=== PATIENT | female | born 1950 | race Caucasian/White ===

== ENCOUNTER → 2019-11-01 09:53 | Outpatient (BNVA) | payer MEDICARE, OTHER, SELFPAY | PROVIDERS: Family Provider Nurse Practitioner; Visit Provider Nurse Practitioner | DX: M81.0 Age-related osteoporosis without current pathological fracture (principal) | CPT/HCPCS: 82310 ==

== ENCOUNTER 2019-11-11 14:27 | Outpatient (CLI) | payer MEDICARE, OTHER, SELFPAY ==
--- NOTE | 2019-11-11 14:33 | MM_ITS ---
WS: [id number] BILATERAL DIGITAL SCREENING MAMMOGRAPHY WITH CAD CLINICAL INFORMATION: SCREENING HISTORY: Screening mammogram. Breast soreness COMPARISON: July 18, 2017 TECHNIQUE: Bilateral CC and MLO views. FINDINGS: Scattered fibroglandular densities bilaterally. Lucent centered calcifications. No suspicious focal m ass, asymmetry, calcifications, or architectural distortion. No evidence of malignancy. MM/[id number] IMPRESSION: BI-RADS: 2-Benign FOLLOW UP: 1 Year Follow-up Recommend return to annual screening mammography.
== END 2019-11-11 14:28 | disposition home or self-care (01) ==
LOC: RADSHAW 14:30
PROVIDERS: Family Provider Nurse Practitioner; PCP Nurse Practitioner; Visit Provider Nurse Practitioner
DX: Z12.31 Encounter for screening mammogram for malignant neoplasm of breast (principal)
CPT/HCPCS: 77067

== ENCOUNTER → 2019-11-15 15:55 | Outpatient (BNVA) | payer MEDICARE, OTHER, SELFPAY | PROVIDERS: Family Provider Nurse Practitioner; PCP Nurse Practitioner; Visit Provider Nurse Practitioner | DX: E11.65 Type 2 diabetes mellitus with hyperglycemia (principal); Z79.4 Long term (current) use of insulin; I10 Essential (primary) hypertension; F32.9 Major depressive disorder, single episode, unspecified; L21.9 Seborrheic dermatitis, unspecified; M81.0 Age-related osteoporosis without current pathological fracture | CPT/HCPCS: 80053; 81003; 83036 ==

== ENCOUNTER 2019-12-07 14:41 | Outpatient (CLI) | payer MEDICARE, OTHER, SELFPAY ==
[2019-12-07 14:45] VITALS: BP 105/55; PULSE 81; RESP 16; TEMP 36.7; O2SAT 96
[2019-12-07] MEDS: denosumab 60 mg SDV SUBCUT (15:08)
[2019-12-07 15:17] VITALS: BP 105/59; PULSE 78; TEMP 36.9
== END 2019-12-07 14:42 | disposition home or self-care (01) ==
LOC: RHEOACUTE 14:43
PROVIDERS: Family Provider Nurse Practitioner; PCP Nurse Practitioner; Visit Provider Internal Medicine Rheumatology
DX: M81.0 Age-related osteoporosis without current pathological fracture (principal)
CPT/HCPCS: 96372; J0897

== ENCOUNTER → 2020-02-29 09:41 | Outpatient (BNVA) | payer MEDICARE, OTHER, SELFPAY | PROVIDERS: Family Provider Nurse Practitioner; PCP Nurse Practitioner; Visit Provider Nurse Practitioner Family | DX: E11.65 Type 2 diabetes mellitus with hyperglycemia (principal); Z79.4 Long term (current) use of insulin; I10 Essential (primary) hypertension | CPT/HCPCS: 80053; 80061; 83036; 84443; 85025 ==

== ENCOUNTER → 2020-05-30 08:28 | Outpatient (BNVA) | payer MEDICARE, OTHER, SELFPAY | PROVIDERS: Family Provider Nurse Practitioner; PCP Nurse Practitioner; Visit Provider Nurse Practitioner | DX: I10 Essential (primary) hypertension (principal); E11.65 Type 2 diabetes mellitus with hyperglycemia; Z79.4 Long term (current) use of insulin | CPT/HCPCS: 80053; 80061; 83036 ==

== ENCOUNTER → 2020-06-14 10:05 | Outpatient (BNVA) | payer MEDICARE, OTHER, SELFPAY | PROVIDERS: Family Provider Nurse Practitioner; PCP Nurse Practitioner; Visit Provider Nurse Practitioner | DX: M25.552 Pain in left hip (principal) | CPT/HCPCS: 73502 ==

== ENCOUNTER → 2020-07-06 13:39 | Outpatient (BNVA) | payer MEDICARE, OTHER, SELFPAY | PROVIDERS: Family Provider Nurse Practitioner; PCP Nurse Practitioner; Visit Provider Nurse Practitioner | DX: E11.65 Type 2 diabetes mellitus with hyperglycemia (principal); Z79.4 Long term (current) use of insulin | CPT/HCPCS: 82310 ==

== ENCOUNTER 2020-07-18 12:43 | Outpatient (CLI) | payer MEDICARE, OTHER, SELFPAY ==
[2020-07-18 12:55] VITALS: BP 145/78; PULSE 78; RESP 16; TEMP 36.6; O2SAT 96
[2020-07-18] MEDS: denosumab 60 mg SDV SUBCUT (12:59)
[2020-07-18 13:00] VITALS: BMI 37.5
[2020-07-18 13:35] VITALS: BP 127/76; PULSE 78; RESP 16; TEMP 37; O2SAT 97
== END 2020-07-18 12:44 | disposition home or self-care (01) ==
LOC: RHEOACUTE 12:45
PROVIDERS: Family Provider Nurse Practitioner; PCP Nurse Practitioner; Visit Provider Internal Medicine Rheumatology
DX: M81.0 Age-related osteoporosis without current pathological fracture (principal)
CPT/HCPCS: 96372; J0897

== ENCOUNTER → 2020-10-04 09:32 | Outpatient (BNVA) | payer MEDICARE, OTHER, SELFPAY | PROVIDERS: Family Provider Nurse Practitioner; PCP Nurse Practitioner; Visit Provider Nurse Practitioner | DX: E11.65 Type 2 diabetes mellitus with hyperglycemia (principal); I10 Essential (primary) hypertension; Z79.4 Long term (current) use of insulin | CPT/HCPCS: 80053; 80061; 81000; 83036 ==

== ENCOUNTER 2020-10-11 06:00 | Outpatient (RCR) | payer MEDICARE, OTHER, SELFPAY | END 2020-10-22 23:59 | disposition home or self-care (01) | LOC: APT 06:00 | PROVIDERS: Family Provider Nurse Practitioner; PCP Nurse Practitioner; Referring Provider Nurse Practitioner; Visit Provider Nurse Practitioner | DX: M25.552 Pain in left hip (principal) | CPT/HCPCS: 97110; 97163 ==

== ENCOUNTER 2020-10-23 06:00 | Outpatient (RCR) | payer MEDICARE, OTHER, SELFPAY | END 2020-11-19 23:59 | disposition home or self-care (01) | LOC: APT 06:00 | PROVIDERS: Family Provider Nurse Practitioner; PCP Nurse Practitioner; Referring Provider Nurse Practitioner; Visit Provider Nurse Practitioner | DX: M25.552 Pain in left hip (principal) | CPT/HCPCS: 97110; 97112 ==

== ENCOUNTER 2020-11-20 06:00 | Outpatient (RCR) | payer MEDICARE, OTHER, SELFPAY | END 2020-12-20 23:59 | disposition home or self-care (01) | LOC: APT 06:00 | PROVIDERS: Family Provider Nurse Practitioner; PCP Nurse Practitioner; Referring Provider Nurse Practitioner; Visit Provider Nurse Practitioner | DX: M25.552 Pain in left hip (principal) | CPT/HCPCS: 97110; 97112; 97164 ==

== ENCOUNTER → 2021-01-24 08:34 | Outpatient (BNVA) | payer MEDICARE, OTHER, SELFPAY | PROVIDERS: Family Provider Nurse Practitioner; PCP Nurse Practitioner; Visit Provider Nurse Practitioner | DX: E11.65 Type 2 diabetes mellitus with hyperglycemia (principal); Z79.4 Long term (current) use of insulin; E55.9 Vitamin D deficiency, unspecified | CPT/HCPCS: 80053; 81000; 82306; 83036 ==

== ENCOUNTER 2021-02-07 13:03 | Outpatient (CLI) | payer MEDICARE, OTHER, SELFPAY ==
[2021-02-07 13:14] VITALS: BP 125/61; PULSE 90; RESP 18; TEMP 36.7; O2SAT 95
[2021-02-07] MEDS: denosumab 60 mg SDV SUBCUT (13:27)
== END 2021-02-07 13:04 | disposition home or self-care (01) ==
PROVIDERS: PCP Nurse Practitioner; Visit Provider Nurse Practitioner
DX: M81.0 Age-related osteoporosis without current pathological fracture (principal)
CPT/HCPCS: 96372; J0897

== ENCOUNTER 2021-02-22 10:05 | Outpatient (CLI) | payer MEDICARE, OTHER, SELFPAY ==
--- NOTE | 2021-02-22 10:09 | MM_ITS ---
WS: [id number] BILATERAL SCREENING DIGITAL MAMMOGRAM WITH CAD HISTORY: SCREENING COMPARISON: 11/11/2019 and 07/18/2017 Bilateral CC and MLO views submitted. Computer aided detection analyzed. Breast composition: There are scattered areas of fibroglandular density. No suspicious masses, microc alcifications or architectural distortion. Benign coarse round calcifications in each breast. MM/[place] [id number] IMPRESSION: BI-RADS: 2-Benign FOLLOW UP: 1 Year Follow-up
== END 2021-02-22 10:06 | disposition home or self-care (01) ==
LOC: RADSHAW 10:07
PROVIDERS: PCP Nurse Practitioner; Visit Provider Nurse Practitioner
DX: Z12.31 Encounter for screening mammogram for malignant neoplasm of breast (principal)
CPT/HCPCS: 77067

== ENCOUNTER → 2021-05-07 11:06 | Outpatient (BNVA) | payer MEDICARE, OTHER, SELFPAY | PROVIDERS: PCP Nurse Practitioner; Visit Provider Nurse Practitioner | DX: E11.65 Type 2 diabetes mellitus with hyperglycemia (principal); I10 Essential (primary) hypertension; F32.9 Major depressive disorder, single episode, unspecified; Z79.4 Long term (current) use of insulin | CPT/HCPCS: 80053; 80061; 83036; 84443 ==

== ENCOUNTER 2021-07-02 14:34 | Outpatient (CLI) | payer MEDICARE, OTHER, SELFPAY ==
--- NOTE | 2021-07-02 14:43 | US_ITS ---
WS: [id number] RENAL ULTRASOUND HISTORY: STAGE 3B CHRONIC KIDNEY DZ COMPARISON: None available. TECHNIQUE: 2-D and color Doppler imaging of the kidney submitted. Right kidney: 10.4 cm x 5.9 cm x 5.0 cm. Normal echogenicity with no hydronephrosis or mass. Left kidney: 9.9 cm x 5.0 cm x 5.3 cm. Normal echogenicity with no hydronephrosis or mass. Aorta: Normal. Urinary Bladder: Normal distention. US/US renal BI* [id number] IMPRESSION: Normal renal ultrasound.
== END 2021-07-02 14:35 | disposition home or self-care (01) ==
LOC: RAD 14:37
PROVIDERS: PCP Nurse Practitioner; Visit Provider Internal Medicine Nephrology
DX: N18.32 Chronic kidney disease, stage 3b (principal)
CPT/HCPCS: 76770

== ENCOUNTER → 2021-08-09 09:09 | Outpatient (BNVA) | payer MEDICARE, OTHER, SELFPAY | PROVIDERS: PCP Nurse Practitioner; Visit Provider Nurse Practitioner | DX: E11.65 Type 2 diabetes mellitus with hyperglycemia (principal); Z79.4 Long term (current) use of insulin; E55.9 Vitamin D deficiency, unspecified | CPT/HCPCS: 80053; 80061; 82043; 82306; 83036; 84443; 85025 ==

== ENCOUNTER → 2021-11-26 13:09 | Outpatient (BNVA) | payer MEDICARE, OTHER, SELFPAY | PROVIDERS: PCP Nurse Practitioner; Visit Provider Nurse Practitioner | DX: I10 Essential (primary) hypertension (principal); E11.65 Type 2 diabetes mellitus with hyperglycemia; Z79.4 Long term (current) use of insulin | CPT/HCPCS: 80048; 80061; 83036; 84443; 84450; 84460 ==

== ENCOUNTER 2021-11-28 13:04 | Outpatient (CLI) | payer MEDICARE, OTHER, SELFPAY ==
[2021-11-28 13:21] VITALS: BP 140/59; PULSE 83; RESP 18; TEMP 36.9; O2SAT 95
[2021-11-28] MEDS: denosumab 60 mg SDV SUBCUT (13:26)
[2021-11-28 13:32] VITALS: BP 124/59; PULSE 77; RESP 18; TEMP 36.8; O2SAT 97
== END 2021-11-28 13:05 | disposition home or self-care (01) ==
PROVIDERS: PCP Nurse Practitioner; Visit Provider Nurse Practitioner
DX: M81.0 Age-related osteoporosis without current pathological fracture (principal)
CPT/HCPCS: 96372; J0897

== ENCOUNTER → 2021-12-05 08:33 | Outpatient (BNVA) | payer MEDICARE, OTHER, SELFPAY | PROVIDERS: PCP Nurse Practitioner; Visit Provider Internal Medicine Nephrology | DX: N18.32 Chronic kidney disease, stage 3b (principal) | CPT/HCPCS: 80069; 82043; 82310; 83970; 85025 ==

== ENCOUNTER 2022-02-25 08:30 | Outpatient (CLI) | payer MEDICARE, OTHER, SELFPAY ==
--- NOTE | 2022-02-25 08:34 | MM_ITS ---
WS: [id number] BILATERAL SCREENING DIGITAL BREAST TOMOSYNTHESIS MAMMOGRAM WITH CAD HISTORY: SCREENING COMPARISON: 02/22/2021, 11/11/2019, 07/18/2017 Bilateral CC and MLO views with tomosynthesis and synthetic mammography submitted. Computer aided det ection analyzed. Breast composition: There are scattered areas of fibroglandular density. No suspicious masses, microc alcifications or architectural distortion. Asymmetry in the anterior LEFT breast and bilateral calcif ications are stable. MM/[place] [id number] IMPRESSION: BI-RADS: 2-Benign FOLLOW UP: 1 Year Follow-up
== END 2022-02-25 08:31 | disposition home or self-care (01) ==
LOC: RAD 08:32
PROVIDERS: PCP Nurse Practitioner; Visit Provider Nurse Practitioner
DX: Z12.31 Encounter for screening mammogram for malignant neoplasm of breast (principal)
CPT/HCPCS: 77063; 77067

== ENCOUNTER → 2022-02-27 14:30 | Outpatient (BNVA) | payer MEDICARE, OTHER, SELFPAY | PROVIDERS: PCP Nurse Practitioner; Visit Provider Nurse Practitioner | DX: I10 Essential (primary) hypertension (principal); E11.65 Type 2 diabetes mellitus with hyperglycemia; Z79.4 Long term (current) use of insulin; E55.9 Vitamin D deficiency, unspecified; E11.21 Type 2 diabetes mellitus with diabetic nephropathy | CPT/HCPCS: 80053; 80061; 82306; 83036; 83721; 84443; 85025 ==

== ENCOUNTER → 2022-05-31 11:47 | Outpatient (BNVA) | payer MEDICARE, OTHER, SELFPAY | PROVIDERS: PCP Nurse Practitioner; Visit Provider Nurse Practitioner | DX: E11.21 Type 2 diabetes mellitus with diabetic nephropathy (principal); I10 Essential (primary) hypertension; E11.65 Type 2 diabetes mellitus with hyperglycemia; Z79.4 Long term (current) use of insulin; F32.9 Major depressive disorder, single episode, unspecified; J98.01 Acute bronchospasm; R60.9 Edema, unspecified | CPT/HCPCS: 80053; 80061; 83036; 84443; 85025 ==

== ENCOUNTER 2022-06-03 12:22 | Outpatient (CLI) | payer MEDICARE, OTHER, SELFPAY ==
[2022-06-03 12:30] VITALS: BP 113/71; PULSE 85; RESP 18; TEMP 37.1; O2SAT 97
[2022-06-03] MEDS: denosumab 60 mg SDV SUBCUT (12:51)
[2022-06-03 12:58] VITALS: BP 122/75; PULSE 77; RESP 18; TEMP 36.8; O2SAT 95
== END 2022-06-03 12:23 | disposition home or self-care (01) ==
LOC: ONCMED 12:23
PROVIDERS: PCP Nurse Practitioner; Visit Provider Nurse Practitioner
DX: M81.0 Age-related osteoporosis without current pathological fracture (principal)
CPT/HCPCS: 96372; J0897

== ENCOUNTER → 2022-08-26 15:55 | Outpatient (BNVA) | payer MEDICARE, OTHER, SELFPAY | PROVIDERS: PCP Nurse Practitioner; Visit Provider Nurse Practitioner | DX: E55.9 Vitamin D deficiency, unspecified (principal); E11.21 Type 2 diabetes mellitus with diabetic nephropathy; E11.65 Type 2 diabetes mellitus with hyperglycemia; Z79.4 Long term (current) use of insulin; I10 Essential (primary) hypertension; F32.9 Major depressive disorder, single episode, unspecified | CPT/HCPCS: 80053; 81000; 83036 ==

== ENCOUNTER 2022-09-02 14:47 | Inpatient (IN) | payer MEDICARE, OTHER, SELFPAY ==
[2022-09-02 15:12] VITALS: BP 130/75; PULSE 86; O2SAT 100; BMI 28.0
--- NOTE | 2022-09-02 15:22 | ED_ITS ---
HPI - Syncope General: Chief Complaint: Syncope Stated Complaint: SYNCOPAL EPISODE Time Seen by Provider: 09/02/22 15:22 History of Present Illness: Ms. Steel is a 71-year-old lady with significant past medical history of diabetes with long-term insulin use presenting to the emergency department due to syncopal type episode. She reports being in her baseline health past few days. She woke up normally and took her medications, she was drinking coffee between 6 and 7 AM and went out to take the garbage out around 9:30 AM. She felt lightheaded and slid out of her stopped vehicle. She was on the ground for some period of time though is unsure of exactly how long. She describes lucid periods but they seem more transient. Eventually she regained her strength enough to get up and drove to a neighbor's house. She currently endorses mostly pain in the right lower extremity and inability to ambulate. She is unsure of exactly how she fell. Denies history of frequent similar. Denies changes in medication doses. No other specific changes in health, exacerbating, or alleviating factors identified. Onset (ago): hour(s) Prodromal symptoms: lightheaded Witnessed: No Injuries sustained associated with event: RLE Review of Systems General: Reports: 10 or more systems reviewed and unremarkable except in HPI and below PFSH ED PFSH: Medical History Depression Diabetes mellitus with hyperglycemia, with long-term current use of insulin Diverticulosis Essential (primary) hypertension Menopausal osteoporosis Vitamin D insufficiency Surgical History History of appendectomy (~2019) History of bilateral cataract extraction History of eyelid surgery History of foot surgery Left History of hip surgery Left History of partial hysterectomy History of squamous cell carcinoma excision Face 2015 Family History Other Cancer Diabetes Social History Smoking and tobacco status: former smoker Second hand smoke exposure: No Smoking risk assessment/counseling performed?: Yes Alcohol intake: never Desire information about alcohol rehabilitation?: No Counseling given: No Desire information about substance/drug rehabilitation?: No Counseling given: No Adopted: No Caregiver/support person: No Lives independently: Yes Household members: none Housing: House Marital status: / Number of children: 2 Highest education level completed: Associate Degree: Academic Program service: No Current occupational status: retired History of recent travel: No Current gender identity: Female Physical Exam Const: COMMON NORMALS: patient oriented x3 and alert GENERAL APPEARANCE: cooperative and well developed HENMT: COMMON NORMALS: normocephalic and atraumatic HEAD & SCALP: normocephalic and atraumatic THROAT: posterior oropharynx normal OTHER: No bojorquez signs or raccoon eyes. No hemotympanum. No otorrhea or rhinorrhea. Jaw alignment normal. Dentition baseline. No obvious bony step-offs. No septal hematoma. No evidence of ocular entrapment. Eye: COMMON NORMALS: conjunctivae normal CONJUNCTIVA: Yes conjunctivae normal SCLERA: sclerae normal Neck/C-Spine: COMMON NORMALS: supple GENERAL: Yes trachea midline Resp: COMMON NORMALS: clear to auscultation bilaterally EFFORT & INSPECTION: Yes able to speak in complete sentences AUSCULTATION: clear to auscultation bilaterally Cardio: COMMON NORMALS: regular rate and regular rhythm RATE: regular rate RHYTHM: regular rhythm GI: COMMON NORMALS: Soft to palpation PALPATION: Yes Soft to palpation and No Tenderness to palpation present (GI) Extremity: NARRATIVE EXTREMITY EXAM: Tenderness palpation of medial left mid gibson region, no obvious deformity or overlying skin changes. Distal CMS intact. GENERAL: Yes normal exam except as noted and No edema Neuro: COMMON NORMALS: patient oriented x3, CN's II-XII intact bilaterally, moves all extremities, no focal motor deficits and no sensory deficits noted SENSORIUM/ORIENTATION: Yes alert and No Orientation impaired Psych: COMMON NORMALS: mental status grossly normal and Normal thought process present THOUGHT PROCESS: Normal thought process present Course Vital Signs: Vital signs: Vital Signs Temperature 97.7 F 09/04/22 15:03 Pulse Rate 77 09/04/22 15:03 Respiratory Rate 18 09/04/22 15:03 Blood Pressure 131/70 09/04/22 15:03 Pulse Oximetry 95 09/04/22 15:03 Oxygen Delivery Me thod 09/04/22 12:00 MDM - Syncope Medical Decision Making 71-year-old lady presenting to the emergency department due to syncopal type episode with prolonged downtime. On initial exam patient has intermittent hypoglycemia however is largely asymptomatic. There are no focal neurologic deficits. Head to toe exam performed. EKG shows sinus rhythm with nonspecific ST segment abnormalities. Notable for leukocytosis which may be reactive, normal hemoglobin. Metabolic panel with similar findings compared to prior, glucose is low however reported care with treatment improved. Mild elevation in CK. Intermediate range 2-hour delta troponin. No evidence of DKA. Toxic ingestions negative. Chest x-ray with no lobar consolidation or pneumothorax. Negative x-ray for fracture of the right lower extremity. No DVT. Head CT with no evidence of hemorrhage or mass-effect. During ED course patient given fluids, analgesia, and did require D50. Patient is not low risk by syncope rules and the etiology patient syncope is somewhat unclear, may have been a hypoglycemic episode though this would be somewhat atypical and the patient is on longer acting agents requiring monitoring for repeat hypoglycemia. The results of ED evaluation were discussed with the patient including plan for admission due to requirement for level of care not available if discharged to prevent significant worsening/deterioration. Patient agreeable with plan. Discussed with hospitalist service who was agreeable to admit patient. Medical Records I reviewed the patient's medical records. Lab Data I reviewed the patient's lab results. 09/02/22 15:50 09/02/22 15:50 Radiology Impressions Chest X-Ray 09/02/22 15:31 Impression: Negative chest. Head CT 09/02/22 15:31 IMPRESSION: No acute intracranial abnormality. Chronic microvascular ischemic changes. Tibia/Fibula X-Ray 09/02/22 15:31 Impression: Negative right leg for fracture. Venous Duplex 09/02/22 16:43 IMPRESSION: No evidence of deep vein thrombosis. Laboratory Results WBC 8.7 10^3/uL (4.0-10.0) 09/03/22 04:04 RBC 4.09 10^6/uL (4.1-5.3) L 09/03/22 04:04 Hgb 12.3 g/dL (11.5-15.3) 09/03/22 04:04 Hct 39.0 % (37.0-47.0) 09/03/22 04:04 MCV 95.4 fl (81-99) 09/03/22 04:04 MCH 30.1 pg (28.0-34.0) 09/03/22 04:04 MCHC 31.5 g/dL (30.0-36.0) 09/03/22 04:04 RDW 14.1 % (12.1-15.1) 09/03/22 04:04 Plt Count 223 10^3/cmm (130-400) 09/03/22 04:04 MPV 9.1 fL (7.4-10.4) 09/03/22 04:04 Neut % (Auto) 61.7 % 09/03/22 04:04 Lymph % (Auto) 29.0 % 09/03/22 04:04 Leslie % (Auto) 8.7 % 09/03/22 04:04 Eos % (Auto) 0.3 % 09/03/22 04:04 Baso % (Auto) 0.1 % 09/03/22 04:04 Neut # (Auto) 5.37 10^3/uL (1.8-7.7) 09/03/22 04:04 Lymph # (Auto) 2.5 10^3/uL (0.8-4.8) 09/03/22 04:04 Leslie # (Auto) 0.8 10^3/uL (0.2-0.9) 09/03/22 04:04 Eos # (Auto) 0.0 10^3/uL (0.0-0.8) 09/03/22 04:04 Baso # (Auto) 0.0 10^3/uL (0.0-0.1) 09/03/22 04:04 Nucleated RBC % (auto) 0 % 09/03/22 04:04 Nucleated RBCs # 0.0 /100WBC 09/03/22 04:04 D-Dimer 1.92 ug/mIFEU (0-0.59) H 09/02/22 22:29 Sodium 142 mmol/L (136-145) 09/03/22 04:04 Potassium 4.4 mmol/L (3.5-5.1) 09/03/22 04:04 Chloride 109 mmol/L (98-107) H 09/03/22 04:04 Carbon Dioxide 25 mmol/L (22-29) 09/03/22 04:04 Anion Gap 12.4 (5-19) 09/03/22 04:04 BUN 35 mg/dL (8-23) H 09/03/22 04:04 Creatinine 1.5 mg/dL (0.5-0.9) H 09/03/22 04:04 GFR Calculation 34.3 mL/min (90-130) L 09/03/22 04:04 Glucose 70 mg/dL (65-115) 09/03/22 04:04 POC Glucose 142 mg/dL (70-110) H 09/03/22 11:06 Estimat Average Glucose 134 09/03/22 04:04 Hemoglobin A1c 6.3 % (4.0-6.0) H 09/03/22 04:04 Calculated Osmolality 300 mOsm/kg (285-295) H 09/03/22 04:04 Calcium 9.5 mg/dL (8.5-10.5) 09/03/22 04:04 Magnesium 2.0 mg/dL (1.7-2.3) 09/03/22 04:04 Total Bilirubin 0.3 mg/dL (0.15-1.2) 09/03/22 04:04 AST 28 U/L (0-32) 09/03/22 04:04 ALT 15 U/L (0-33) 09/03/22 04:04 Alkaline Phosphatase 54 U/L (35-105) 09/03/22 04:04 Creatine Kinase 443 U/L (26-192) H* 09/02/22 15:50 Troponin T Baseline 27 ng/L (0-10) H 09/02/22 15:50 Troponin T 120 Minute 32.21 ng/L (0-10) H 09/02/22 17:15 Delta Troponin T 5.21 ABS# (0-10) 09/02/22 17:15 Troponin T Hi Sens 6Hr 36.52 ng/L (0-10) H 09/02/22 22:29 Troponin T Hi Sens 6Hr Delta 9.52 ng/L (0-12) 09/02/22 22:29 Total Protein 6.2 g/dL (6.6-8.7) L 09/03/22 04:04 Albumin 3.6 g/dL (3.5-5.2) 09/03/22 04:04 Globulin 2.6 g/dL (1.3-4.6) 09/03/22 04:04 Triglycerides 104 mg/dL (0-150) 09/03/22 04:04 Cholesterol 147 mg/dL (0-200) 09/03/22 04:04 LDL Cholesterol, Calc 82 mg/dL (50-129) 09/03/22 04:04 HDL Cholesterol 44 mg/dL (60-100) L 09/03/22 04:04 LDL/HDL Ratio 1.86 RATIO (0.00-3.22) 09/03/22 04:04 Cholesterol/HDL Ratio 3.34 mg/dL (0.0-4.40) 09/03/22 04:04 Procalcitonin 0.04 ng/mL (0-0.5) 09/02/22 15:50 TSH 1.72 uIU/mL (0.27-4.20) 09/02/22 15:50 Urine Color Yellow (Yellow) 09/02/22 23:44 Urine Appearance Clear (CLEAR) 09/02/22 23:44 Urine pH 5 (5-7) 09/02/22 23:44 Ur Specific [place] 1.020 (1.005-1.030) 09/02/22 23:44 Urine Protein Neg (Negative) 09/02/22 23:44 Urine Glucose (UA) 4+ (Normal) H 09/02/22 23:44 Urine Ketones Negative (Negative) 09/02/22 23:44 Urine Blood Neg (Negative) 09/02/22 23:44 Urine Nitrate Negative (Negative) 09/02/22 23:44 Urine Bilirubin Neg (Negative) 09/02/22 23:44 Urine Urobilinogen Norm mg/dL (Negative) 09/02/22 23:44 Ur Leukocyte Esterase Negative (Negative) 09/02/22 23:44 Urine Opiates Screen Negative ng/mL (Negative) 09/02/22 23:44 Ur Barbiturates Screen Negative ng/mL (Negative) 09/02/22 23:44 Ur Phencyclidine Scrn Negative ng/mL (Negative) 09/02/22 23:44 Ur Amphetamines Screen Negative ng/mL (Negative) 09/02/22 23:44 U Benzodiazepines Scrn Negative ng/mL (Negative) 09/02/22 23:44 Urine Cocaine Screen Negative ng/mL (Negative) 09/02/22 23:44 U Marijuana (THC) Screen Negative ng/mL (Negative) 12/12/22 23:44 Ethyl Alcohol < 10 mg/dL (0-10) 09/02/22 15:50 Influenza Type A Ag negative (Negative) 09/02/22 20:20 Influenza Type B Ag negative (Negative) 09/02/22 20:20 SARS-CoV-2 Ag (Rapid) negative (Negative) 09/02/22 20:20 Discharge Plan Discharge Patient Disposition: Placed in Observation Admit Provider: Cristel Trevino Clinical Impression: Syncope, Hypoglycemia, Elevated CK Coding Level of Care Code ED Director Of In Service Education for Chg Fwd Exam Comprehensive
[2022-09-02 15:23] LABS: Glucose Point of Care 54 mg/dL (70-110)
--- NOTE | 2022-09-02 15:31 | XR_ITS ---
WS: [id number] Portable AP upright chest, 09/02/2022 Clinical Data: syncope Comparison: None. Findings: No nodules, masses or effusions are seen. The heart is normal. The pulmonary vascularity is not increased. No pneumonia or pneumothorax is seen. XR/XR chest 1V portable [id number] Impression: Negative chest.
--- NOTE | 2022-09-02 15:31 | CTR_ITS ---
PROCEDURE INFORMATION: Exam: CT Head Without Contrast Exam date and time: 09/02/2022 3:50 PM Age: 71 years old Clinical indication: Syncope and collapse TECHNIQUE: Imaging protocol: Computed tomography of the head without contrast. Radiation optimization: All CT scans at this facility use at least one of these dose optimization techniques: automated exposure control; mA and/or kV adjustment per patient size (includes targeted exams where dose is matched to clinical indication); or iterative reconstruction. COMPARISON: No relevant prior studies available. RADIATION DOSE METRICS: Total DLP (mGy-cm): 1186.98 FINDINGS: Brain: The gerber-white differentiation is maintained. No hemorrhage. No edema.There are mild periventricular and subcortical lucencies consistent with chronic microvascular ischemic changes. Cerebral ventricles: No ventriculomegaly. Paranasal sinuses: Visualized sinuses are unremarkable. No fluid levels. Mastoid air cells: Visualized mastoid air cells are well aerated. Orbital cavities: Bilateral cataract surgery. Bones/joints: Unremarkable. No acute fracture. Soft tissues: Unremarkable. CT/CT head wo con* [id number] IMPRESSION: No acute intracranial abnormality. Chronic microvascular ischemic changes.
--- NOTE | 2022-09-02 15:31 | XR_ITS ---
WS: [id number] Right leg including the tibia and fibula, AP and lateral views, 09/02/2022 Clinical Data: fall, pain mid medial Comparison: None. Findings: No fractures or dislocations are seen. The tibia and fibula are intact. The soft tissues are normal. XR/XR tibia fibula RT 2V [id number] Impression: Negative right leg for fracture.
--- NOTE | 2022-09-02 15:32 | ECG_ITS ---
[facility] Test Date: 2022-09-02 Pat Name: Lyly Steel Department: Room: Gender: Female [employer] Officer: : 1950 Requested By: Joo Hernandes Order Number: [id number] Gary MD: Torri Fox M.D. Measurements Intervals Crane Rate: 80 P: 60 IA: 179 QRS: 22 QRSD: 106 T: 58 QT: 385 QTc: 446 Interpretive Statements SINUS RHYTHM LOW QRS VOLTAGE IN PRECORDIAL LEADS [QRS DEFLECTION < 1.0 mV IN CHEST LEADS] INTERPRETATION BASED ON A DEFAULT AGE OF 40 YEARS Compared to ECG 05/03/2019 01:37:13 Low QRS voltage now present Electronically Signed On 09-03-2022 23:55:15 [employer]ING [employer] by Torri Fox M.D. [email or web address]
[2022-09-02] MEDS: dextrose 50% syringe 50 mL IVP (15:44)
[2022-09-02 15:57] LABS: Basophils % 0.2 %; Hematocrit 43.9 % (37.0-47.0); Lymphocytes # 1.4 10^3/uL (0.8-4.8); Lymphocytes % 8.5 %; Mean Corpuscular HGB Conc 31.9 g/dL (30.0-36.0); Mean Corpuscular Hemoglobin 30.6 pg (28.0-34.0); Mean Corpuscular Volume 95.9 fl (81-99); Mean Platelet Volume 8.9 fL (7.4-10.4); Monocytes # 0.7 10^3/uL (0.2-0.9); Monocytes % 4.2 %; Neutrophils # 14.08 10^3/uL (1.8-7.7); Neutrophils % 86.7 %; Nucleated Red Blood Cells % 0 %; Platelet Count 242 10^3/cmm (130-400); Red Blood Count 4.58 10^6/uL (4.1-5.3); Red Cell Distribution Width 14.2 % (12.1-15.1); White Blood Count 16.2 10^3/uL (4.0-10.0)
[2022-09-02 16:17] LABS: Alanine Aminotransferase 17 U/L (0-33); Albumin Level 4.1 g/dL (3.5-5.2); Alkaline Phosphatase 55 U/L (35-105); Anion Gap 15.2 (5-19); Aspartate Amino Transferase 29 U/L (0-32); Blood Urea Nitrogen 33 mg/dL (8-23); Calcium 9.6 mg/dL (8.5-10.5); Carbon Dioxide 24 mmol/L (22-29); Chloride 104 mmol/L (98-107); Globulin 2.9 g/dL (1.3-4.6); Glomerular Filtration Rate 44.4 mL/min (90-130); Glucose 46 mg/dL (65-115); Osmolality Calculated 292 mOsm/kg (285-295); Potassium 4.2 mmol/L (3.5-5.1); Sodium 139 mmol/L (136-145); Total Bilirubin 0.2 mg/dL (0.15-1.2)
[2022-09-02 16:19] LABS: Troponin(5th) Baseline 27 ng/L (0-10)
--- NOTE | 2022-09-02 16:43 | USR_ITS ---
PROCEDURE INFORMATION: Exam: US Duplex Right Lower Extremity Veins, Limited Exam date and time: 09/02/2022 5:14 PM Age: 71 years old Clinical indication: Pain; Leg, lower; Right; Additional info: Swelling, pain TECHNIQUE: Imaging protocol: Real-time Duplex ultrasound of the Right Lower Extremity with 2-D greber scale, color Doppler flow and spectral waveform analysis with image documentation. Limited exam was focused on the right lower extremity veins. COMPARISON: US renal BI* [id number] 07/02/2021 2:56 PM FINDINGS: Right deep veins: Unremarkable. The common femoral, femoral, proximal profunda femoral and popliteal veins are patent without thrombus. Normal Doppler waveforms. Normal compressibility and/or augmentation response. Right superficial veins: Unremarkable. Saphenofemoral junction is patent without thrombus. Soft tissues: Unremarkable. US/[place] [id number] IMPRESSION: No evidence of deep vein thrombosis.
[2022-09-02 16:44] LABS: Glucose Point of Care 96 mg/dL (70-110)
[2022-09-02 16:46] LABS: Creatine Phosphokinase 443 U/L (26-192)
[2022-09-02 16:47] VITALS: BP 130/75; PULSE 85; RESP 20; O2SAT 98
[2022-09-02 17:11] LABS: Thyroid Stimulating Hormone 1.72 uIU/mL (0.27-4.20)
[2022-09-02] MEDS: sodium chloride 0.9% 1,000 ML 125 ML IV (17:28)
[2022-09-02] MEDS: ketorolac 30 mg/mL INJ 15 MG IVP (17:28)
[2022-09-02 17:39] LABS: Troponin 5 2HR 32.21 ng/L (0-10)
[2022-09-02 17:40] LABS: Troponin 5 2HR Delta 5.21 ABS# (0-10)
--- NOTE | 2022-09-02 19:00 | PM.HP ---
Providers/Chief Complaint Admitting Physician: Cristel Trevino MD Primary Care Provider: Dangelo Cartagena, HEAD UP OPERATOR HELPER-C Chief Complaint: SYNCOPAL EPISODE History of Present Illness Lyly Steel is a 71 year old female with a past medical history of type 2 diabetes, dyslipidemia, osteoporosis who presented to the hospital with a syncopal episode. Patient states she was in her usual state of health until this afternoon when she went to her car and while trying to get and passed out. She remembers being extremely somnolent, however was able to pull herself into her car. She was diaphoretic at that time. She had some glucose tablets on hand in her car which she took and was able to drive over to her neighbor's house who then called the ambulance. Patient reports multiple episodes of recent diaphoresis and near syncope at home. She has not measured her blood sugar during all of these episodes, however suspected this to be hypoglycemia and has been taking sugar tablets recently. Today she was noted to be hypoglycemic with blood sugar in the 40s upon arrival at the ER. She is being admitted for further syncope evaluation today. She denies any chest pain dyspnea or palpitations prior to the event. Denies any fevers. Denies feeling sick recently. Review of Systems General: Reports: 10 or more systems reviewed and unremarkable except in HPI and below Const: Denies: fever(s), chills or body aches Eyes: Denies: change in vision, blurry vision or photophobia ENMT: Reports: hoarseness; Denies: throat pain, enlarged tonsils, odynophagia or nasal congestion Card: Denies: chest pain, palpitations, irregular heart rhythm, edema, swelling of feet/ankles, lightheadedness, pre-syncope, dyspnea on exertion or orthopnea Resp: Denies: dyspnea, productive cough, non-productive cough, wheezing, stridor, pain on inspiration, change in phlegm color, hemoptysis or chest congestion GI: Denies: abdominal pain, nausea, vomiting, hematemesis, coffee ground emesis, dysphagia, heartburn, diarrhea, constipation, GI cramping, change in stool character, hematochezia or melena : Denies: flank pain, difficulty voiding, dysuria, urinary frequency, urinary urgency, urinary hesitancy or hematuria Musc: Denies: neck pain, back pain, extremity pain, joint swelling, joint warmth or deformity Neuro: Denies: headache(s), numbness in extremities, weakness in extremities, sensory changes, difficulty walking, frequent falls, dizziness, vertigo, behavioral changes, Slurred speech present or seizure-like activity Psych: Denies: anxiety, depression, suicidal ideation or homicidal ideation Endo: Denies: polyuria, polydipsia, tired all the time, cold intolerance or hot flashes Niels/Lymph: Denies: easy bruising or easy bleeding Medications/Allergies Home Medications Medication Instructions Recorded Confirmed Last Taken Type denosumab 60 mg/mL subcutaneous See Rx Instructions .Route .COMPLEX 11/15/19 09/02/22 3 Months Ago History syringe (Prolia) ~06/03/22 pen needle, diabetic 32 gauge x #50 ea 11/15/19 09/02/22 Unknown History / (Comfort EZ Pen Pioneer) lancing device (Lancing System) #1 ea 02/29/20 09/02/22 Unknown Rx lancets 33 gauge #100 ea 05/12/20 09/02/22 Unknown Rx blood-glucose meter (Premier #1 ea 08/15/21 09/02/22 Unknown Rx Classic Glucose Meter) blood sugar diagnostic (Premier #100 ea 03/01/22 09/02/22 Unknown Rx Test Strip) ketoconazole 2 % shampoo 1 applic topical .2x weekly #120 mL 05/23/22 09/02/22 Unknown Rx furosemide 20 mg tablet (Lasix) 20 mg PO DAILY PRN edema #30 tabs 05/31/22 09/02/22 Unknown Rx mecobalamin (vitamin B12) 5,000 5,000 mcg PO DAILY #90 tabs 06/14/22 09/02/22 09/02/22 Rx mcg disintegrating tablet diabetic shoes #1 ea 06/23/22 09/02/22 Unknown Rx cholecalciferol (vitamin D3) 125 125 mcg PO DAILY #90 caps 08/26/22 09/02/22 1 Day Ago Rx mcg (5,000 unit) capsule ~09/01/22 dapagliflozin 10 mg tablet 10 mg PO QAM #90 tabs 08/26/22 09/02/22 09/02/22 Rx (Farxiga) dulaglutide 4.5 mg/0.5 mL 4.5 mg (0.5 mL) SUBCUT .weekly #6 08/26/22 09/02/22 1 Day Ago Rx subcutaneous pen injector mL ~09/01/22 (Trulicity) insulin glargine U-300 conc 300 140 unit (0.4667 mL) SUBCUT DAILY 08/26/22 09/02/22 Unknown Rx unit/mL (3 mL) subcutaneous pen #42 mL (Toujeo Max U-300 SoloStar) insulin lispro 100 unit/mL See Rx Instructions SUBCUT TID #45 08/26/22 09/02/22 09/02/22 Rx subcutaneous pen (Humalog KwikPen mL (U-100) Insulin) lisinopril 30 mg tablet 30 mg PO DAILY #90 tabs 08/26/22 09/02/22 09/02/22 Rx simvastatin 40 mg tablet 40 mg PO DAILY #90 tabs 08/26/22 09/02/22 09/02/22 Rx venlafaxine 75 mg capsule,extended 75 mg PO DAILY #90 caps 08/26/22 09/02/22 1 Day Ago Rx release 24 hr (Effexor XR) ~09/01/22 Allergies Allergy/AdvReac Type Severity Reaction Status Date / Time No Known Allergies Allergy Verified 08/26/22 15:50 PFSH Acute PFSH: Medical History Depression Diabetes mellitus with hyperglycemia, with long-term current use of insulin Diverticulosis Essential (primary) hypertension Menopausal osteoporosis Vitamin D insufficiency Surgical History History of appendectomy (~2018) History of bilateral cataract extraction History of eyelid surgery History of foot surgery Left History of hip surgery Left History of partial hysterectomy History of squamous cell carcinoma excision Face 2014 Family History Other Cancer Diabetes Social History Smoking and tobacco status: former smoker Second hand smoke exposure: No Smoking risk assessment/counseling performed?: Yes Alcohol intake: never Desire information about alcohol rehabilitation?: No Counseling given: No Desire information about substance/drug rehabilitation?: No Counseling given: No Adopted: No Caregiver/support person: No Lives independently: Yes Household members: none Housing: House Marital status: / Number of children: 2 Highest education level completed: Associate Degree: Academic Program service: No Current occupational status: retired History of recent travel: No Current gender identity: Female Vitals/I&O/Wt Last Vital Signs Temp 98.4 F 09/03/22 11:40 Pulse 76 09/03/22 11:40 Resp 16 09/03/22 11:40 BP 114/67 09/03/22 11:40 Pulse Ox 94 09/03/22 11:40 O2 Del Method 09/03/22 11:40 09/02/22 09/03/22 09/03/22 22:59 06:59 14:59 Intake Total 240 / 240 3600 / 3600 Output Total Balance 239 / 239 3600 / 3600 Weight last 48 hrs Weight 119.833 kg Weight 118.558 kg Weight 86.183 kg Physical Exam Narrative: General: No acute distress, AO x3 HEENT: PERRLA, pupils bilaterally equal and reactive, pallors not present Chest: Normal vesicular breath sounds, no added sounds, equal good air entry bilaterally CVS: S1-S2 regular, no murmurs, no tachycardia, no gallops, no rubs Abdomen: Soft, nontender, no organomegaly, bowel sounds present Neuro: No focal deficits, no facial deformity, AO x3, power 5/5 in all limbs Data 09/03/22 04:04 09/03/22 04:04 A&P Assessment and plan (1) Syncope: Patient presenting today with a syncopal episode while getting into her car this afternoon. Noted to have hypoglycemia upon admission. Patient reports diaphoresis and multiple episodes of possible hypoglycemia recently with increased diaphoresis and near syncope relieved by taking glucose tablets at home. Prior to arrival today patient took glucose tablets and was able to drive to her neighbor's house to get help. Suspect that syncope is related to hypoglycemia. Review of her A1c trend shows that HbA1c has trended down from 8.9-6.1 between July 2021 to August 2022. States that there has been no recent changes in her medication dosing. Currently she takes insulin Toujeo 60 units in the morning and 70 in the evening, high-dose Humalog sliding scale, dapagliflozin, and weekly Victoza injections. She has not recently lost weight. She does have CKD but her creatinine has not changed dramatically during this timeframe. There has been a change in her diet and she has cut back on carbohydrates significantly. For now we will hold all insulin going forward. We will likely hold it at discharge as well. CT of the head is without any acute changes to suggest CVA. To evaluate for other potential causes of syncope, will obtain echocardiogram, telemetry monitoring, carotid Doppler, D-dimer EKG and baseline troponin. Additionally check TSH. (2) Hypoglycemia: (3) Elevated CK: Attestations Medical Necessity Statement*: Anticipate less than 2 midnight stay for evaluation of syncopal episode. Coding Level of Care Code Acute Crystal Lapper for [facility] Diagnoses Syncope R55 Hypoglycemia E16.2 Elevated CK R74.8
[2022-09-02 19:08] VITALS: BP 143/74; PULSE 81; RESP 18; TEMP 36.9; O2SAT 98
--- NOTE | 2022-09-02 19:57 | USCV_ITS ---
Lyly Steel Age: 71 Gender: F : 1950 Exam Date: 09/03/2022 02:33 Ordering Phys: Cristel Trevino MD Technologist: OMAIRA Exam Location: [facility] [place] Indication: syncope IDDM x 40 yrs. nonsmoker Risk Factors: syncope IDDM x 40 yrs. nonsmoker Previous Vascular Surgery: None Right Brachial BP: / Left Brachial BP: / Right Left Velocity (cm/s) Spectral Plaque Velocity (cm/s) Spectral Plaque Syst/Diast Broadening Syst/Diast Broadening 102.50/17.60 Min Homo Prox CCA 101.00/ 14.00 Min Homo 102.50/17.60 Min Homo Mid CCA 104.10/ 24.90 Min Homo 102.50/24.30 Min Homo Distal CCA 118.10/ 21.80 Min Homo 101.00/23.30 Min Tam Prox ICA 91.00 / 22.70 Min Tam 122.70/29.50 Min Homo Mid ICA 115.20/ 27.00 Min Homo 110.30/26.40 Min Homo Distal ICA 119.40/ 32.70 Min Homo 167.80 Min Homo ECA 170.60 Min Homo 1.20 ICA/CCA 1.01 Antegrade Vertebral Antegrade 73.00/ 12.40 cm/s 105.6/ 20.20 cm/s 0 Tri Subclavian Tri 130.5 119.6 0 0 FINDINGS Comparison: none available. No significant elevation of systolic or diastolic velocities. Mild bilateral scattered calcified plaque and intimal thickening throughout the common carotid arteries and extending through the bifurcation. Antegrade vertebral arteries. CONCLUSIONS Bilateral ICA stenosis less than 50%. Dr. Cara Swann DO (Electronically Signed) Final Date: 03 September 2022 07:40 S
[2022-09-02 20:05] VITALS: PULSE 89
[2022-09-02] MEDS: acetaminophen 325 mg Tablet 650 MG PO (21:08)
[2022-09-02] MEDS: atorvastatin 40 mg Tablet PO (21:08)
[2022-09-02] MEDS: sodium chloride 0.9% 1,000 ML 75 ML IV (21:09)
[2022-09-02 21:28] LABS: Alcohol Level < 10 mg/dL (0-10)
[2022-09-02 21:32] LABS: Procalcitonin 0.04 ng/mL (0-0.5)
[2022-09-02 22:00] VITALS: PULSE 79
[2022-09-02 22:28] LABS: Influenza A by IFA negative (Negative); Influenza B by IFA negative (Negative); SARS Covid-2 Antigen negative (Negative)
--- NOTE | 2022-09-02 22:33 | PC.NURSE ---
Pt referred to Dr. Perera for review of admit w/hypoglyemia and no CBG orders. NO received and noted for CBG AC & HS w/med dose s/s insulin. Pt informed of new orders.
[2022-09-02 22:41] LABS: Glucose Point of Care 127 mg/dL (70-110)
[2022-09-02 23:12] LABS: D Dimer 1.92 ug/mIFEU (0-0.59)
[2022-09-02 23:24] LABS: Troponin 5 6HR 36.52 ng/L (0-10)
[2022-09-02 23:36] LABS: Troponin 5 6HR Delta 9.52 ng/L (0-12)
[2022-09-02 23:57] VITALS: BP 114/60; PULSE 84; RESP 14; TEMP 36.8; O2SAT 94
[2022-09-03] VITALS (8 sets, daily range): BP systolic 107–133; BP diastolic 51–69; PULSE 76–87; RESP 14–16; TEMP 36.9–37.1; O2SAT 93–96
[2022-09-03 00:59] LABS: Add Urine Microscopic? NO; Charge for UA Resulting for Rev
[2022-09-03 01:03] LABS: Bilirubin Urine Neg (Negative); Blood Urine Neg (Negative); Glucose Urine UA 4+ (Normal); Ketones Urine Negative (Negative); Leukocyte Esterase Urine Negative (Negative); Nitrate Urine Negative (Negative); Protein Urine Neg (Negative); Urine Appearance Clear (CLEAR); Urine Color Yellow (Yellow); Urobilinogen Urine Norm (Negative); pH Urine 5 (5-7)
[2022-09-03 01:11] LABS: Amphetamines Screen Urine Negative (Negative); Barbiturates Screen Urine Negative (Negative); Benzodiazepines Screen Urine Negative (Negative); Cocaine Screen Urine Negative (Negative); Opiate Screen Urine Negative (Negative); PCP Screen Urine Negative (Negative); THC Screen Urine Negative (Negative)
--- NOTE | 2022-09-03 04:15 | PC.NURSE ---
Pt c/o right leg pain con't w/apap not effective for pain management at this time. Referred pt to Dr. Perera for review, awaiting orders.
[2022-09-03 04:32] LABS: Basophils % 0.1 %; Eosinophils % 0.3 %; Hemoglobin 12.3 g/dL (11.5-15.3); Lymphocytes # 2.5 10^3/uL (0.8-4.8); Mean Corpuscular HGB Conc 31.5 g/dL (30.0-36.0); Mean Corpuscular Hemoglobin 30.1 pg (28.0-34.0); Mean Corpuscular Volume 95.4 fl (81-99); Mean Platelet Volume 9.1 fL (7.4-10.4); Monocytes # 0.8 10^3/uL (0.2-0.9); Monocytes % 8.7 %; Neutrophils # 5.37 10^3/uL (1.8-7.7); Neutrophils % 61.7 %; Nucleated Red Blood Cells % 0 %; Platelet Count 223 10^3/cmm (130-400); Red Blood Count 4.09 10^6/uL (4.1-5.3); Red Cell Distribution Width 14.1 % (12.1-15.1); White Blood Count 8.7 10^3/uL (4.0-10.0)
[2022-09-03] MEDS: acetaminophen 325 mg Tablet 650 MG PO ×2 (04:41→16:05)
[2022-09-03 04:59] LABS: Alanine Aminotransferase 15 U/L (0-33); Albumin Level 3.6 g/dL (3.5-5.2); Alkaline Phosphatase 54 U/L (35-105); Anion Gap 12.4 (5-19); Aspartate Amino Transferase 28 U/L (0-32); Blood Urea Nitrogen 35 mg/dL (8-23); Calcium 9.5 mg/dL (8.5-10.5); Carbon Dioxide 25 mmol/L (22-29); Chloride 109 mmol/L (98-107); Chol HDL Ratio 3.34 mg/dL (0.0-4.40); Cholesterol 147 mg/dL (0-200); Globulin 2.6 g/dL (1.3-4.6); Glomerular Filtration Rate 34.3 mL/min (90-130); Glucose 70 mg/dL (65-115); HDL Cholesterol 44 mg/dL (60-100); LDL Cholesterol Calculated 82 mg/dL (50-129); LDL HDL Ratio 1.86 RATIO (0.00-3.22); Osmolality Calculated 300 mOsm/kg (285-295); Potassium 4.4 mmol/L (3.5-5.1); Sodium 142 mmol/L (136-145); Total Bilirubin 0.3 mg/dL (0.15-1.2); Total Protein 6.2 g/dL (6.6-8.7); Triglycerides 104 mg/dL (0-150)
--- NOTE | 2022-09-03 05:52 | PC.NURSE ---
NO received and noted for Morphine 2mg IVP x 1 dose now. Will pull from [facility] and administer.
[2022-09-03] MEDS: morphine 4 mg/mL SDV 1 mL 2 MG IVP (05:58)
[2022-09-03] MEDS: perflutren protein-a microsphr 0.22 mg/mL SDV 3 mL IV (06:08)
--- NOTE | 2022-09-03 06:32 | PC.NURSE ---
Addendum entered by Georgina Monroe RN 09/03/22 06:32: Pt is asymptomatic at this time. Juice and milk given. Original Note: Pt referred to Dr. Perera for review of CBG of 65. Awaiting orders.
[2022-09-03 06:36] LABS: Glucose Point of Care 65 mg/dL (70-110)
[2022-09-03 08:05] LABS: Glucose Point of Care 110 mg/dL (70-110)
[2022-09-03] MEDS: docusate sodium 100 mg Capsule PO ×2 (08:09→18:08)
[2022-09-03] MEDS: venlafaxine ER (24HR) 75 mg Capsule PO (08:09)
[2022-09-03] MEDS: pantoprazole DR 40 mg Tablet PO (08:09)
[2022-09-03] MEDS: aspirin 81 mg EC Tablet PO (08:09)
[2022-09-03] MEDS: sodium chloride 0.9% 1,000 ML 75 ML IV (10:12)
[2022-09-03 11:10] LABS: Glucose Point of Care 142 mg/dL (70-110)
--- NOTE | 2022-09-03 15:03 | P.PN_ITS ---
Subjective Subjective: No further episodes of syncope. Patient was hypoglycemic this morning with a blood sugar of 65. She has not received any doses of insulin inpatient though it appears a low-dose sliding scale had been ordered overnight. Denies any new complaints currently. Medications: Reviewed: Yes Vitals/I&O/Wt Last Vital Signs Temp 98.4 F 09/03/22 11:40 Pulse 76 09/03/22 11:40 Resp 16 09/03/22 11:40 BP 114/67 09/03/22 11:40 Pulse Ox 94 09/03/22 11:40 O2 Del Method 09/03/22 11:40 09/03/22 09/03/22 09/03/22 06:59 14:59 22:59 Intake Total 240 / 240 3600 / 3600 Output Total Balance 239 / 239 3600 / 3600 Weight last 48 hrs Weight 119.833 kg Weight 118.558 kg Weight 86.183 kg Physical Exam Narrative: General: No acute distress, AO x3 HEENT: PERRLA, pupils bilaterally equal and reactive, pallors not present Chest: Normal vesicular breath sounds, no added sounds, equal good air entry bilaterally CVS: S1-S2 regular, no murmurs, no tachycardia, no gallops, no rubs Abdomen: Soft, nontender, no organomegaly, bowel sounds present Neuro: No focal deficits, no facial deformity, AO x3, power 5/5 in all limbs Data 09/03/22 04:04 09/03/22 04:04 A&P Assessment and plan (1) Syncope: Patient presenting with a syncopal episode while getting into her car Noted to have hypoglycemia upon admission with blood sugar down to 46. This was after she had already taken some glucose tablets prior to arrival.. Patient reports diaphoresis and multiple episodes of possible hypoglycemia recently at home with diaphoresis and near syncope relieved by taking glucose tablets. Suspect that syncope is related to hypoglycemia. Review of her A1c trend shows that HbA1c has trended down from 8.9-6.1 between July 2021 to August 2022. States that there has been no recent changes in her medication dosing. Currently she takes insulin Toujeo 60 units in the morning and 70 in the evening, high-dose Humalog sliding scale, dapagliflozin, and weekly Victoza injections. She has not recently lost weight. She does have CKD but her creatinine has not changed dramatically during this timeframe. There has been a change in her diet and she has cut back on carbohydrates significantly. All insulin is on hold currently on this admission. At discharge we will plan to discontinue Toujeo and give her a new mild sliding scale for Humalog. Currently she takes 20 units of Humalog for blood sugar less than 200. Other notable work-up: CT of the head is without any acute changes to suggest CVA. TSH was normal. D-dimer returned elevated at 1.95, which is higher than the age-adjusted cutoff of 0.7. Lower extremity Doppler was negative to evaluate for DVT. Her echocardiogram negative for any valvular abnormalities, no regional wall motion abnormalities, EF of 61%, grade 1 diastolic dysfunction. There was noted to be normal to mildly elevated filling pressures and right atrium and right ventricle were found to be mildly dilated. Due to some evidence of right heart strain and abnormal D-dimer, will proceed with further work-up for a PE. Will avoid CTA given her history of CKD. Currently also has evidence of rhabdomyolysis, creatinine slightly higher than baseline of 1.2-1.3. We will obtain a VQ scan instead. Unfortunately nuclear medicine dye is not available today and this test will only be be able to be completed tomorrow. (2) Hypoglycemia: Discontinue insulin going forward. Hold all oral hypoglycemics while in the hospital. Last A1c 6.1. Will refer to endocrinology upon discharge. (3) Elevated CK: Mild rhabdomyolysis. CK elevated at 443. Likely related to syncope and being down for a few hours. She has been receiving IV hydration with normal saline at 75 cc an hour. We will discontinue IV fluids today, encourage p.o. intake. We will hold statins until CK normalizes. Attestations Medical Necessity Statement*: Plan for VQ scan tomorrow. Coding Level of Care Code Acute Management Trainee Marketing for [facility] Diagnoses Syncope R55 Hypoglycemia E16.2 Elevated CK R74.8
[2022-09-03 17:03] LABS: Glucose Point of Care 188 mg/dL (70-110)
--- NOTE | 2022-09-03 20:05 | USCV_ITS ---
Lyly Steel Age: 71 Gender: F : 1950 Exam Date: 09/03/2022 02:59 Ordering Phys: Cristel Trevino MD Technologist: OMAIRA Exam Location: [facility] [place] Indication: syncope. IDDM x 40yrs. nonsmoker BP: 114 / 60 HR: 76 Rhythm: Sinus Technical Quality: Adequate with [employer] MEASUREMENTS (Male / Female) Normal Values 2D ECHO LV Diastolic Diameter PLAX 5.2 cm 4.2 - 5.9 / 3.9 - 5.3 cm LV Systolic Diameter PLAX 3.2 cm IVS Diastolic Thickness 1.4 cm 0.6 - 1.0 / 0.6 - 0.9 cm IVS Systolic Thickness 1.8 cm LVPW Diastolic Thickness 1.0 cm 0.6 - 1.0 / 0.6 - 0.9 cm LVPW Systolic Thickness 1.5 cm LVOT Diameter 2.0 cm LV Ejection Fraction 2D Teich 67.6 % LV Ejection Fraction MOD 2C 50.6 % LV Ejection Fraction 2C AL 51.0 % LA Diameter 3.7 cm LA Width 3.4 cm LA Height 4.6 cm RA Width 3.8 cm RA Height 4.2 cm Aorta at Sinotubular Diameter 3.2 cm M-MODE Aortic Annulus Diameter 3.1 cm LA Ao Ratio MM 1.0 MV E Point Septal Separation 0.6 cm DOPPLER AV Peak Velocity 113.0 cm/s LVOT Peak Velocity 93.0 cm/s AV Area Cont Eq vti 2.9 cm squared AV Area Cont Eq pk 2.6 cm squared MV Area PHT 3.3 cm squared Mitral E to A Ratio 1.3 MV E' Velocity 53.0 cm/s Mitral E to MV E' Ratio 13.9 Mitral E to LV E' Lateral Ratio 11.8 Mitral E to LV E' Septal Ratio 16.9 TV Peak E Velocity 66.0 cm/s PV Peak Velocity 105.0 cm/s RV Acceleration Time 0.1 s RV Ejection Time 0.3 s RV AcT/ET 0.3 FINDINGS Left Ventricle Normal left ventricular size and systolic function, EF 61 %. No regional wall motion abnormalities. Grade I/IV diastolic dysfunction (abnormal relaxation filling pattern), normal to mildly elevated filling pressures. Right Ventricle Mildly dilated with a normal ejection fraction Right Atrium Mildly dilated Left Atrium The left atrium is normal in size. Mitral Valve No gross abnormalities noted Aortic Valve No gross abnormalities noted Tricuspid Valve No gross abnormalities noted Pulmonic Valve Pulmonic valve not well visualized. Pericardium Normal pericardium without effusion. Aorta Normal aortic annulus size. IVC Inferior vena cava not visualized. CONCLUSIONS Normal left ventricular size and systolic function, EF 61 %. No regional wall motion abnormalities. Grade I/IV diastolic dysfunction (abnormal relaxation filling pattern), normal to mildly elevated filling pressures. Of the right atrium and the right ventricle were found to be mildly dilated. No gross valvular abnormalities. There is no pericardial effusion. Technically difficult study because of the poor ultrasonic window. No similar previous studies are available for comparison Dr Torri Fox MD FACC (Electronically Signed) Final Date: 03 September 2022 13:45 S
[2022-09-03 20:21] LABS: Glucose Point of Care 191 mg/dL (70-110)
--- NOTE | 2022-09-03 20:24 | PC.NURSE ---
Pt referred to Dr. Perera for review of pain management. NO received and noted for 1) Ibuprofen 400mg x 1 dose now.
[2022-09-03] MEDS: ibuprofen 200 mg Tablet 400 MG PO (20:48)
[2022-09-04] VITALS: BP 136/73; PULSE 76; RESP 15; TEMP 37; O2SAT 96
[2022-09-04 04:00] VITALS: BP 135/72; PULSE 68; RESP 16; TEMP 36.6; O2SAT 94
[2022-09-04 06:13] VITALS: PULSE 77
[2022-09-04 07:05] LABS: Glucose Point of Care 111 mg/dL (70-110)
[2022-09-04 08:00] VITALS: BP 116/67; PULSE 68; RESP 16; TEMP 36.4; O2SAT 95
[2022-09-04] MEDS: lisinopril 10 mg Tablet 30 MG PO (09:14)
[2022-09-04] MEDS: pantoprazole DR 40 mg Tablet PO (09:15)
[2022-09-04] MEDS: aspirin 81 mg EC Tablet PO (09:15)
[2022-09-04] MEDS: venlafaxine ER (24HR) 75 mg Capsule PO (09:15)
[2022-09-04] MEDS: docusate sodium 100 mg Capsule PO (09:16)
[2022-09-04 09:19] LABS: Estmated Average Glucose 134; Hemoglobin A1C 6.3 % (4.0-6.0)
[2022-09-04 12:00] VITALS: BP 131/70; PULSE 77; RESP 18; TEMP 36.5; O2SAT 95
[2022-09-04 12:18] LABS: Glucose Point of Care 145 mg/dL (70-110)
--- NOTE | 2022-09-04 13:56 | NM_ITS ---
WS: [id number] NUCLEAR MEDICINE LUNG VENTILATION AND PERFUSION CLINICAL INFORMATION: evalaute for PE TECHNIQUE: Ventilation/perfusion lung scan with 32.0 mCi technetium 99m DTPA. 5.4 mCi technetium 99m MAA COMPARISON: Radiograph September 02, 2022 FINDINGS: Recent radiograph reviewed. Symmetric radiotracer uptake on the perfusion images. Normal up take on the ventilation images. No mismatched defects to suggest pulmonary embolus. IMPRESSION: 1. Low probability for pulmonary embolus.
[2022-09-04 15:03] VITALS: BP 131/70; PULSE 77; RESP 18; TEMP 36.5; O2SAT 95
--- NOTE | 2022-09-04 16:14 | P.DS_ITS ---
Discharge Providers Date of Admission: 09/03/22 15:27 Date of Discharge: September 04, 2022 Attending Provider at Admission: Cristel Trevino MD Attending Provider at Discharge: Cristel Trevino MD Primary Care Provider: BETITO Bonilla Diagnoses at Discharge Discharge Diagnosis (1) Syncope: Status: Acute (2) Hypoglycemia: Status: Acute (3) Elevated CK: Status: Acute Reason for Visit Reason for Visit: SYNCOPAL EPISODE Brief History: Taken from H&P: 71 year old female with a past medical history of type 2 diabetes, dyslipidemia, osteoporosis who presented to the hospital with a syncopal episode.? Patient states she was in her usual state of health until this afternoon when she went to her car and while trying to get and passed out.? She remembers being extremely somnolent, however was able to pull herself into her car.? She was diaphoretic at that time.? She had some glucose tablets on hand in her car which she took and was able to drive over to her neighbor's house who then called the ambulance.? Patient reports multiple episodes of recent diaphoresis and near syncope at home.? She has not measured her blood sugar during all of these episodes, however suspected this to be hypoglycemia and has been taking sugar tablets recently. Today she was noted to be hypoglycemic with blood sugar in the 40s upon arrival at the ER.? She is being admitted for further syncope evaluation today. She denies any chest pain dyspnea or palpitations prior to the event.? Denies any fevers.? Denies feeling sick recently. Hospital Course Hospital Course Patient was admitted to the hospital for syncope evaluation. She was hypoglycemic upon admission with blood sugar down to 46.Review of her A1c trend shows that HbA1c has trended down from 8.9-6.1 between July 2021 to August 2022.? States that there has been no recent changes in her medication dosing.? Currently she takes insulin Toujeo 60 units in the morning and 70 in the evening, high-dose Humalog sliding scale, dapagliflozin, and weekly Victoza injections.? She has not recently lost weight.? She does have CKD but her creatinine has not changed dramatically during this timeframe. There has been a change in her diet and she has cut back on carbohydrates significantly. Insulin and oral hypoglycemic agents were placed on hold during her admission here. Her blood sugar during admission ranged between 65-2 10. At the time of discharge we have resumed Farxiga and Trulicity with recommendations to stop Toujeo. I have asked her to maintain a blood sugar chart of Premeal and postmeal blood sugars and take it to her primary care provider within a week. Should she have any numbers on this sugar charting greater than 250, she can initiate Premeal Hu malog however I have provided her with a low-dose sliding scale as against the 25 to 40 units as she was taking before 3 meals. Referral has also been provided to endocrinology as outpatient for diabetes management. Other notable work-up included negative CT of the head, normal TSH. Her D-dimer returned elevated at 1.95, higher than the age-adjusted cutoff of 0.7. Her echocardiogram showed no regional wall motion abnormalities, LVEF of 61%, grade 1 diastolic dysfunction and mildly elevated filling pressures and right atrial and ventricular dilatation. Due to concern for possible PE given right-sided changes on echo and elevated D-dimer she underwent a VQ scan which was negative for PE. CTA was not performed to avoid risk of EVA. She also had evidence of mild rhabdomyolysis which was treated with IV hydration. Statins have been placed on hold at discharge for this reason. Recommended to repeat CPK in 1 week and follow-up with primary care provider to resume statins if CK normaliz ed. She is being discharged today in stable to improved condition. Physical Exam Narrative: General: No acute distress, AO x1 HEENT: PERRLA, pupils bilaterally equal and reactive, pallors not present Chest: Normal vesicular breath sounds, no added sounds, equal good air entry bilaterally CVS: S1-S2 regular, no murmurs, no tachycardia, no gallops, no rubs Abdomen: Soft, nontender, no organomegaly, bowel sounds present Neuro: No focal deficits, no facial deformity, AO x3, power 5/5 in all limbs Extremities: Healthy surgical dressing present on the right hip, mild tenderness, soft no erythema. Discharge Data Studies Completed and Pending Completed Studies During Hospitalization Category Date Time Status CT head wo con* [id number] Stat Cat Scan 09/02/22 15:31 Completed XR chest 1V portable [id number] Stat Exams 09/02/22 15:31 Completed XR tibia fibula RT 2V [id number] Stat Exams 09/02/22 15:31 Completed NM pul vent and perfus* [id number] Routine Nuc Med 09/04/22 13:56 Completed CV carotid duplex BI* [id number] Stat Ultrasound 09/02/22 19:57 Completed CV. echo wo/w contrast [id number] Routine Ultrasound 09/03/22 20:05 Completed US venous duplex lower extremity RT [CV venous duplex Ultrasound 09/02/22 16:[place] [id number]] Stat Radiology Impressions Chest X-Ray 09/02/22 15:31 Impression: Negative chest. Head CT 09/02/22 15:31 IMPRESSION: No acute intracranial abnormality. Chronic microvascular ischemic changes. Tibia/Fibula X-Ray 09/02/22 15:31 Impression: Negative right leg for fracture. Venous Duplex 09/02/22 16:43 IMPRESSION: No evidence of deep vein thrombosis. Laboratory Results WBC 8.7 10^3/uL (4.0-10.0) 09/03/22 04:04 RBC 4.09 10^6/uL (4.1-5.3) L 09/03/22 04:04 Hgb 12.3 g/dL (11.5-15.3) 09/03/22 04:04 Hct 39.0 % (37.0-47.0) 09/03/22 04:04 MCV 95.4 fl (81-99) 09/03/22 04:04 MCH 30.1 pg (28.0-34.0) 09/03/22 04:04 MCHC 31.5 g/dL (30.0-36.0) 09/03/22 04:04 RDW 14.1 % (12.1-15.1) 09/03/22 04:04 Plt Count 223 10^3/cmm (130-400) 09/03/22 04:04 MPV 9.1 fL (7.4-10.4) 09/03/22 04:04 Neut % (Auto) 61.7 % 09/03/22 04:04 Lymph % (Auto) 29.0 % 09/03/22 04:04 [place] % (Auto) 8.7 % 09/03/22 04:04 Eos % (Auto) 0.3 % 09/03/22 04:04 Baso % (Auto) 0.1 % 09/03/22 04:04 Neut # (Auto) 5.37 10^3/uL (1.8-7.7) 09/03/22 04:04 Lymph # (Auto) 2.5 10^3/uL (0.8-4.8) 09/03/22 04:04 [place] # (Auto) 0.8 10^3/uL (0.2-0.9) 09/03/22 04:04 Eos # (Auto) 0.0 10^3/uL (0.0-0.8) 09/03/22 04:04 Baso # (Auto) 0.0 10^3/uL (0.0-0.1) 09/03/22 04:04 Nucleated RBC % (auto) 0 % 09/03/22 04:04 Nucleated RBCs # 0.0 /100WBC 09/03/22 04:04 D-Dimer 1.92 ug/mIFEU (0-0.59) H 09/02/22 22:29 Sodium 142 mmol/L (136-145) 09/03/22 04:04 Potassium 4.4 mmol/L (3.5-5.1) 09/03/22 04:04 Chloride 109 mmol/L (98-107) H 09/03/22 04:04 Carbon Dioxide 25 mmol/L (22-29) 09/03/22 04:04 Anion Gap 12.4 (5-19) 09/03/22 04:04 BUN 35 mg/dL (8-23) H 09/03/22 04:04 Creatinine 1.5 mg/dL (0.5-0.9) H 09/03/22 04:04 GFR Calculation 34.3 mL/min (90-130) L 09/03/22 04:04 Glucose 70 mg/dL (65-115) 09/03/22 04:04 POC Glucose 145 mg/dL (70-110) H 09/04/22 11:57 Estimat Average Glucose 134 09/03/22 04:04 Hemoglobin A1c 6.3 % (4.0-6.0) H 09/03/22 04:04 Calculated Osmolality 300 mOsm/kg (285-295) H 09/03/22 04:04 Calcium 9.5 mg/dL (8.5-10.5) 09/03/22 04:04 Magnesium 2.0 mg/dL (1.7-2.3) 09/03/22 04:04 Total Bilirubin 0.3 mg/dL (0.15-1.2) 09/03/22 04:04 AST 28 U/L (0-32) 09/03/22 04:04 ALT 15 U/L (0-33) 09/03/22 04:04 Alkaline Phosphatase 54 U/L (35-105) 09/03/22 04:04 Creatine Kinase 443 U/L (26-192) H* 09/02/22 15:50 Troponin T Baseline 27 ng/L (0-10) H 09/02/22 15:50 Troponin T 120 Minute 32.21 ng/L (0-10) H 09/02/22 17:15 Delta Troponin T 5.21 ABS# (0-10) 09/02/22 17:15 Troponin T Hi Sens 6Hr 36.52 ng/L (0-10) H 09/02/22 22:29 Troponin T Hi Sens 6Hr Delta 9.52 ng/L (0-12) 09/02/22 22:29 Total Protein 6.2 g/dL (6.6-8.7) L 09/03/22 04:04 Albumin 3.6 g/dL (3.5-5.2) 09/03/22 04:04 Globulin 2.6 g/dL (1.3-4.6) 09/03/22 04:04 Triglycerides 104 mg/dL (0-150) 09/03/22 04:04 Cholesterol 147 mg/dL (0-200) 09/03/22 04:04 LDL Cholesterol, Calc 82 mg/dL (50-129) 09/03/22 04:04 HDL Cholesterol 44 mg/dL (60-100) L 09/03/22 04:04 LDL/HDL Ratio 1.86 RATIO (0.00-3.22) 09/03/22 04:04 Cholesterol/HDL Ratio 3.34 mg/dL (0.0-4.40) 09/03/22 04:04 Procalcitonin 0.04 ng/mL (0-0.5) 09/02/22 15:50 TSH 1.72 uIU/mL (0.27-4.20) 09/02/22 15:50 Urine Color Yellow (Yellow) 09/02/22 23:44 Urine Appearance Clear (CLEAR) 09/02/22 23:44 Urine pH 5 (5-7) 09/02/22 23:44 Ur Specific [place] 1.020 (1.005-1.030) 09/02/22 23:44 Urine Protein Neg (Negative) 09/02/22 23:44 Urine Glucose (UA) 4+ (Normal) H 09/02/22 23:44 Urine Ketones Negative (Negative) 09/02/22 23:44 Urine Blood Neg (Negative) 09/02/22 23:44 Urine Nitrate Negative (Negative) 09/02/22 23:44 Urine Bilirubin Neg (Negative) 09/02/22 23:44 Urine Urobilinogen Norm mg/dL (Negative) 09/02/22 23:44 Ur Leukocyte Esterase Negative (Negative) 09/02/22 23:44 Urine Opiates Screen Negative ng/mL (Negative) 09/02/22 23:44 Ur Barbiturates Screen Negative ng/mL (Negative) 09/02/22 23:44 Ur Phencyclidine Scrn Negative ng/mL (Negative) 09/02/22 23:44 Ur Amphetamines Screen Negative ng/mL (Negative) 09/02/22 23:44 U Benzodiazepines Scrn Negative ng/mL (Negative) 09/02/22 23:44 Urine Cocaine Screen Negative ng/mL (Negative) 09/02/22 23:44 U Marijuana (THC) Screen Negative ng/mL (Negative) 09/02/22 23:44 Ethyl Alcohol < 10 mg/dL (0-10) 09/02/22 15:50 Influenza Type A Ag negative (Negative) 09/02/22 20:20 Influenza Type B Ag negative (Negative) 09/02/22 20:20 SARS-CoV-2 Ag (Rapid) negative (Negative) 09/02/22 20:20 Vitals Last Vital Signs Temp 97.7 F 09/04/22 15:03 Pulse 77 09/04/22 15:03 Resp 18 09/04/22 15:03 BP 131/70 09/04/22 15:03 Pulse Ox 95 09/04/22 15:03 O2 Del Method 09/04/22 12:00 Discharge Plan Discharge Patient Disposition: Home Condition: Stable Prescriptions: Continued Prolia 60 mg/mL syringe See Rx Instructions .ROUTE .COMPLEX Rx Instructions: 60 mg subcutaneously (DME) pen needle, diabetic [Comfort EZ Pen [place]] 32 gauge x 1/4 needle See Rx Instructions .ROUTE .MEDSUPPLY Qty: 50 Rx Instructions: As directed ([facility]) lancing device [Lancing System] [facility] [place] Instructions .ROUTE .MEDSUPPLY Qty: 1 0RF Rx Instructions: As directed, ONE TOUCH DELICA ([facility]) lancets 33 gauge [facility] [place] Rx Instructions .ROUTE .MEDSUPPLY Qty: 100 5RF Rx Instructions: use 3 times day ([facility]) Premier Test Strip Strip See Rx Instructions .Route Qty: 100 5RF Rx Instructions: use 3 times furosemide [Lasix] 20 mg tablet 20 mg PO DAILY PRN (Reason: edema) Qty: 30 0RF cholecalciferol (vitamin D3) 125 mcg (5,000 unit) capsule 125 mcg PO DAILY Qty: 90 1RF Farxiga 10 mg tablet 10 mg PO QAM Qty: 90 0RF Trulicity 4.5 mg/0.5 mL pen injector 4.5 mg SUBCUT .weekly Qty: 6 1RF lisinopril 30 mg tablet 30 mg PO DAILY Qty: 90 0RF venlafaxine [Effexor XR] 75 mg capsule,extended release 24hr 75 mg PO DAILY Qty: 90 0RF (DME) blood-glucose meter [Premier Classic Glucose Meter] [facility] [place] Rx Instructions .Route Qty: 1 0RF Rx Instructions: As directed ketoconazole 2 % shampoo 1 applic topical .2x weekly Qty: 120 6RF Rx Instructions: Lather into scalp 2-3 times weekly. Allow to sit on scalp for 5 minutes before rinsing. mecobalamin (vitamin B12) 5,000 mcg tablet,disintegrating 5,000 mcg PO DAILY Qty: 90 1RF (DME) diabetic shoes See Rx Instructions .Route .MEDSUPPLY Qty: 1 0RF Rx Instructions: As directed Held simvastatin 40 mg tablet 40 mg PO DAILY Qty: 90 0RF Hold Instructions: Resume on 09/11/22. Discontinued insulin lispro [Humalog KwikPen Insulin] 100 unit/mL insulin pen See Rx Instructions SUBCUT TID Qty: 45 1RF Rx Instructions: 12-40 units SUBCUT three times daily; 12-40 UNITS TID WITH MEALS Toujeo Max U-300 SoloStar 300 unit/mL (3 mL) insulin pen 140 unit SUBCUT DAILY Qty: 42 1RF Discharge Orders: Discharge Order (Routine); Ordered 09/04/22 Ordered By: Cristel Trevino Referrals: Dangelo Cartagena, [employer] [Primary Care Provider] - 09/25/22 9:20 am (hospital discharge follow up, review fingerstick log, repeat CK prior to starting statin) Hillary Haney MD [Physician] - 09/06/22 11:15 am Patient Instructions: Syncope (GEN), Hypoglycemia in a Person with Diabetes (GEN), Opioid Safety Activity Restrictions/Additional Instructions: Your insulin has been discontinued for now. Please mainatain a blood sugar log as instructed. If in apite of taking oral diabetes medicines, your blood sugar at meal time is high, take humalog insulin as follows: 160-180: 2 units;181-220: 4 units;221-260: 6 units; 261-300: 8 units; 301-350: 10 units; 351-400: 12 units; >400: 14 units. Simvastatin on hold until CPK is repeated as outpatient. Discharge Attestations Time Spent in Discharge Care*: greater than 30 min Quality Metrics Clinical Quality Measures [ No reported AMI, CVA or VTE this stay] Coding Level of Care Code Acute Chg FW DC note Diagnoses Syncope R55 Hypoglycemia E16.2 Elevated CK R74.8
== END 2022-09-04 15:16 | disposition home or self-care (01) | DRG 699 ==
LOC: ER 17:38 → MEDSURG 18:22
PROVIDERS: Admitting Provider Student in an Organized Health Care Education/Training Program; Emergency Provider Emergency Medicine; PCP Nurse Practitioner; Visit Provider Student in an Organized Health Care Education/Training Program
DX: E11.22 Type 2 diabetes mellitus with diabetic chronic kidney disease (principal); M62.82 Rhabdomyolysis; E11.649 Type 2 diabetes mellitus with hypoglycemia without coma; N18.9 Chronic kidney disease, unspecified; E78.5 Hyperlipidemia, unspecified; M81.0 Age-related osteoporosis without current pathological fracture; Z79.85 Long-term (current) use of injectable non-insulin antidiabetic drugs; F32.A Depression, unspecified; Z85.828 Personal history of other malignant neoplasm of skin; Z87.891 Personal history of nicotine dependence
CPT/HCPCS: 36415; 36416; 70450; 71045; 73590; 78014; 80053; 80061; 80306; 80307; 81003; 82550; 82962; 83036; 83735; 84145; 84443; 84484; 85025; 85378; 87426; 87804; 93005; 93880; 93971; 96374; 97110; 97116; 97161; 97166; 97535; 99285; A9540; A9567; C8929; G0378; J1885; J2270; J7030; Q9956

== ENCOUNTER → 2022-09-06 10:50 | Outpatient (BNVA) | payer MEDICARE, OTHER, SELFPAY | PROVIDERS: PCP Nurse Practitioner; Visit Provider Internal Medicine | DX: E11.21 Type 2 diabetes mellitus with diabetic nephropathy (principal); E11.649 Type 2 diabetes mellitus with hypoglycemia without coma; N18.30 Chronic kidney disease, stage 3 unspecified; R74.8 Abnormal levels of other serum enzymes; Z79.4 Long term (current) use of insulin | CPT/HCPCS: 99204 ==

== ENCOUNTER → 2022-09-26 11:00 | Outpatient (BNVA) | payer MEDICARE, OTHER, SELFPAY | PROVIDERS: PCP Nurse Practitioner; Visit Provider Internal Medicine | DX: E11.649 Type 2 diabetes mellitus with hypoglycemia without coma (principal); R74.8 Abnormal levels of other serum enzymes; E11.21 Type 2 diabetes mellitus with diabetic nephropathy; E11.22 Type 2 diabetes mellitus with diabetic chronic kidney disease; N18.30 Chronic kidney disease, stage 3 unspecified; Z79.4 Long term (current) use of insulin | CPT/HCPCS: 99214 ==

== ENCOUNTER → 2022-09-27 10:31 | Outpatient (BNVA) | payer MEDICARE, OTHER, SELFPAY | PROVIDERS: PCP Nurse Practitioner; Visit Provider Nurse Practitioner | DX: R74.8 Abnormal levels of other serum enzymes (principal) | CPT/HCPCS: 80053; 82550 ==

== ENCOUNTER → 2022-11-19 15:29 | Outpatient (BNVA) | payer MEDICARE, OTHER, SELFPAY | PROVIDERS: PCP Nurse Practitioner; Visit Provider Nurse Practitioner | DX: E11.21 Type 2 diabetes mellitus with diabetic nephropathy (principal); E55.9 Vitamin D deficiency, unspecified; I10 Essential (primary) hypertension; F32.9 Major depressive disorder, single episode, unspecified; R60.9 Edema, unspecified | CPT/HCPCS: 80053; 80069; 82043; 82306; 82310; 83970; 85025 ==

== ENCOUNTER 2022-12-04 10:11 | Oncology outpatient (recurring) (ONCR) | payer MEDICARE, OTHER, SELFPAY ==
[2022-12-04] MEDS: denosumab 60 mg SDV SUBCUT (10:45)
== END 2022-12-20 23:59 | disposition home or self-care (01) ==
LOC: ONCMED 10:12
PROVIDERS: PCP Nurse Practitioner; Visit Provider Nurse Practitioner
DX: M81.0 Age-related osteoporosis without current pathological fracture (principal); Z79.899 Other long term (current) drug therapy
CPT/HCPCS: 96372; J0897

== ENCOUNTER → 2022-12-26 15:57 | Outpatient (BNVA) | payer MEDICARE, OTHER, SELFPAY | PROVIDERS: PCP Nurse Practitioner; Visit Provider Internal Medicine | DX: E11.21 Type 2 diabetes mellitus with diabetic nephropathy (principal); R74.8 Abnormal levels of other serum enzymes; E16.2 Hypoglycemia, unspecified | CPT/HCPCS: 36415; 80053; 80061; 82044; 82550; 83036 ==

== ENCOUNTER → 2023-01-09 15:06 | Outpatient (BNVA) | payer MEDICARE, OTHER, SELFPAY | PROVIDERS: PCP Nurse Practitioner; Visit Provider Internal Medicine | DX: E11.649 Type 2 diabetes mellitus with hypoglycemia without coma (principal); R74.8 Abnormal levels of other serum enzymes; E11.21 Type 2 diabetes mellitus with diabetic nephropathy; Z79.4 Long term (current) use of insulin | CPT/HCPCS: 36415; 82550; 99214 ==

== ENCOUNTER 2023-02-28 12:56 | Outpatient (CLI) | payer MEDICARE, OTHER, SELFPAY ==
--- NOTE | 2023-02-28 13:05 | MM_ITS ---
WS: [id number] Bilateral screening 3D tomosynthesis digital mammogram, 02/28/2023 Clinical Data: Z12.39 - Encounter for other screening for malignant neop... Comparison: 02/25/2022, 02/22/2021, 11/11/2019, 07/18/2017, 02/14/2016, 04/22/2014. Findings: The breast parenchymal pattern shows fibroglandular tissue. No spiculated masses or clustered calcifi cations are seen. There are no secondary signs of carcinoma. The anterior breasts show benign calcifi cations. There are mole markers on both breasts. Impression: 1. Negative bilateral mammogram unchanged. 2. Recommend annual screening mammograms. MM/[place] [id number] BIRADS: 1-Negative FOLLOW UP: 1 Year Follow-up The CAD shipping checker was used.
== END 2023-02-28 12:57 | disposition home or self-care (01) ==
LOC: RAD 12:57
PROVIDERS: PCP Nurse Practitioner; Visit Provider Nurse Practitioner
DX: Z12.31 Encounter for screening mammogram for malignant neoplasm of breast (principal)
CPT/HCPCS: 77063; 77067

== ENCOUNTER → 2023-03-26 10:31 | Outpatient (BNVA) | payer MEDICARE, OTHER, SELFPAY | PROVIDERS: PCP Nurse Practitioner; Visit Provider Internal Medicine | DX: E11.649 Type 2 diabetes mellitus with hypoglycemia without coma (principal); R74.8 Abnormal levels of other serum enzymes | CPT/HCPCS: 36415; 80053; 80061; 82044; 83036; 99214 ==